=== PATIENT | male | born 1965 ===

== ENCOUNTER → 2021-05-29 | Outpatient (CLI) | payer OTHER ==
--- NOTE | 2021-05-29 14:53 | MR ---
EXAMINATION TYPE: MR cervical spine wo con DATE OF EXAM: 05/29/2021 COMPARISON: None HISTORY: 55-year-old male M54.81, Bilateral Occipital Neuralgia, KIM x 8 months TECHNIQUE: Multiplanar, multisequence images of the cervical spine were acquired without contrast. FINDINGS: No craniocervical junction abnormality, predental space widening, or prevertebral soft tissue swellin g. Mild multilevel degenerative disc disease with desiccated and bulging discs. More moderate at C5-C6 w ith mild disc space narrowing and fatty Modic type II endplate change. Mild ligamentum flavum thickening mid to lower cervical spine. Scattered facet and uncovertebral joint arthropathy is present. At C2-C3, no canal or foraminal stenosis. At C3-C4, mild facet and uncovertebral joint arthropathy on the right with mild right neuroforaminal stenosis. No spinal canal stenosis. At C4-C5, facet and uncovertebral joint arthropathy, right greater the left with mild right neurofora shlomo stenosis. Minimal posterior disc bulge abutting the ventral cord but no significant spinal jose carlos l stenosis. At C5-C6, broad-based disc osteophyte complex with contiguous uncovertebral joint and facet arthropat hy, left greater than right. Changes result in severe left and moderate right neural foraminal stenos is. Along with ligamentum flavum thickening, there is moderate spinal canal stenosis with abutment of both the dorsal and ventral cord and right ventral cord flattening. No myelopathic cord signal soares e. At C6-C7, broad-based posterior disc ossific complex with uncovertebral joint and facet arthropathy. Changes result in moderate bilateral neural foraminal stenosis. Ligamentum flavum thickening, there i s overall moderate spinal canal stenosis with abutment and flattening of the ventral cord. No ari m yelopathic cord signal change. At C7-T1, mild posterior disc bulge. Hypertrophic facet arthropathy. Mild left neuroforaminal stenosi s. No significant spinal canal stenosis. IMPRESSION: 1. Mild multilevel degenerative disc disease, more moderate at C5-C6. Ligamentum flavum thickening mi d to lower cervical spine and multilevel facet and uncovertebral joint arthropathy. 2. Overall moderate spinal canal narrowing at C5-C6 and C6-C7. There is abutment and slight flattenin g of the ventral cord at both of these levels. No myelopathic cord signal change or ari cord compre ssion. 3. Variable neural foraminal stenoses as outlined above, severe on the left and moderate on the right at C5-C6. Moderate on both sides at C6-C7.
== END | disposition home or self-care (01) ==
LOC: RADMRIMAIN 10:37
PROVIDERS: ATTEND Psychiatry & Neurology Neurology
DX: M48.02 Spinal stenosis, cervical region (principal); M50.322 Other cervical disc degeneration at C5-C6 level
CPT/HCPCS: 72141

== ENCOUNTER → 2021-07-11 | Outpatient (CLI) | payer OTHER ==
[2021-07-11 08:15] VITALS: BP 145/91; PULSE 70; RESP 18; TEMP 97.9
--- NOTE | 2021-07-11 08:17 | P.PAINCN ---
History of Present Illness - Reason for Consult Consult date: 07/11/21 - History of Present Illness This is 55 years old male, chronic history of severe headache started in August 2020, he denies any initiating event and he reported that the headache intensity increased over time, it starts from the base of the skull and radiated to the top, intensity of the headache fluctuated during the daytime, he denies any aura before the headache, he tried multiple medication with only minimal benefit from it, denies any motor or sensory deficit he denies any fever or night sweats, intensity of the headache interfere with the quality of life, he is currently on Motrin 800 mg Foristell and Flexeril, he tried chiropractics with only minimal benefit and he is currently on physical therapy ,and he tryied to home exercise Past Medical History Past Medical History: Atrial Fibrillation, Asthma, Myocardial Infarction (CT) Additional Past Medical History / Comment(s): headaches Last Myocardial Infarction Date:: 2013 History of Any Multi-Drug Resistant Organisms: None Reported Past Surgical History: Orthopedic Surgery Additional Past Surgical History / Comment(s): 05/09 tendon,ligament,muscle reattachment lt elbow. cyst removed rt foot, cyst back of head removed Past Anesthesia/Blood Transfusion Reactions: No Reported Reaction Past Psychological History: No Psychological Hx Reported Smoking Status: Former smoker Past Alcohol Use History: None Reported Additional Past Alcohol Use History / Comment(s): quit smoking 2014 Past Drug Use History: None Reported Medications and Allergies Home Medications Medication Instructions Recorded Confirmed Type ALPRAZolam [Xanax] 0.5 mg PO DAILY PRN 07/10/21 07/10/21 History Albuterol Sulfate [Proair Hfa] 2 puff INHALATION Q6HR PRN 07/10/21 07/10/21 History Cyclobenzaprine [Flexeril] 1 - 2 mg PO HS 07/10/21 07/10/21 History Fluticasone/Salmeterol [Advair 1 inhalation PO BID 07/10/21 07/10/21 History 500-50 Diskus] HYDROcodone/APAP 5-325MG [Foristell 2 tab PO Q8HR PRN 07/10/21 07/10/21 History 5-325] Ibuprofen 800 mg PO DAILY PRN 07/10/21 07/10/21 History Loratadine 10 mg PO DAILY 07/10/21 07/10/21 History Metoprolol Tartrate [Lopressor] 25 mg PO BID 07/10/21 07/10/21 History Allergies Allergy/AdvReac Type Severity Reaction Status Date / Time Iodinated Contrast Media Allergy Nausea & Verified 07/10/21 10:32 Vomiting Iodine and Iodide Containing Allergy Nausea & Verified 07/10/21 10:32 Produc Vomiting Physical Exam Physical Examinations : -Constitutiona : Cooperative , not in acute distress . -HEENT : nech : supple , no Lymphadenopathy , normal thyroid size . : eyes : no ptosis , no icterus, no photophobia . - neurologic : Cranial nerve II to XII intact , no focal neurological deffecit . -psychatric : alert , oriented X 3 , appropriate affect , intact judgment and insight . -Lymphatic : no Lymphadenopathy . - musculoskeltal : Cervical Spine motor stregnth in the deltoid and biceps, normal right side , normal Left side motor stregnth biceps and the wrist extensors normal right side ,normal left side . motor stregnth in the triceps muscle . normal Right side , normal Left side deep tendon reflexes normal at the biceps , normal at Brachioradialis , normal at triceps. cervical facet loading test: Positive Bilaterally Tenderness over the occipital nerves bilaterally Lumber spine moter stegnth lower extremities ,thigh and legs 5/5 Right side , 5/5 Left side Results Comments: MRI of the cervical spine =multilevel cervical facet arthropathy multilevel cervical degenerative disc disease, and multilevel cervical stenosis Assessment and Plan Plan: Assessment and plan=1-occipital neuralgia bilaterally. 2-cervicogenic headache. 3-cervical spondylosis with cervical facet arthropathy. he is good candidate to have bilateral occipital nerve block. In the future if patient continues to have headache he can consider doing diagnostic medial branch block cervical area Time with Patient: Greater than 30 PQRS Measure Charge Sheet Measure #130: Documentation of Current Meds in Medical Chart: Patient's medications documented in chart Measure #226: Tobacco Use: Screen & Cessation Intervention: Pt not a tobacco user Measure #111: Pneumonia Vaccination: Pneumococcal vaccine NOT administered or previously given Measure #47: Advance Care Plan: Advance care planning discussed & documented, pt chose/unable to give Measure #412: Opioid Treatment Agreement: No documentation of signed opioid treatment agreement Measure #408: Opioid Therapy Follow-up Evaluation: Patient had NO f/u eval minimum every 3 months during opioid therapy Measure #317: Preventitive Care & Scrn High Bld Press & F/U: Pre-hypertensive or hypertensive BP documented, pt will f/u with PCP Measure #128: Body Mass Index (BMI) Screening & Follow-up: BMI documented within normal parameters Measure #131: Pain Assessment & Follow-up: Pain positive & plan documented, Follow-up scheduled Measure #431: Unhealthy Alcohol Use Preventative Care & Scrn: Patient not identified as an unhealthy alcohol user PQRS Narrative: Pain Intensity [Head] 7 Scale Used Numeric (1 - 10) Hx Alcohol Use (MH) No Home Medications: Ambulatory Orders ALPRAZolam [Xanax] 0.5 mg PO DAILY PRN 07/10/21 Albuterol Sulfate [Proair Hfa] 2 puff INHALATION Q6HR PRN 07/10/21 Cyclobenzaprine [Flexeril] 1 - 2 mg PO HS 07/10/21 Fluticasone/Salmeterol [Advair 500-50 Diskus] 1 inhalation PO BID 07/10/21 HYDROcodone/APAP 5-325MG [Foristell 5-325] 2 tab PO Q8HR PRN 07/10/21 Ibuprofen 800 mg PO DAILY PRN 07/10/21 Loratadine 10 mg PO DAILY 07/10/21 Metoprolol Tartrate [Lopressor] 25 mg PO BID 07/10/21
== END ==
LOC: PNWHC3 07:38
PROVIDERS: ATTEND Specialist
DX: M54.81 Occipital neuralgia (principal); M47.812 Spondylosis without myelopathy or radiculopathy, cervical region; I48.91 Unspecified atrial fibrillation; J45.909 Unspecified asthma, uncomplicated; I25.2 Old myocardial infarction; Z87.891 Personal history of nicotine dependence; Z91.041 Radiographic dye allergy status; Z79.51 Long term (current) use of inhaled steroids
CPT/HCPCS: 99211

== ENCOUNTER 2021-08-08 08:16 | Day surgery (SDC) | payer OTHER ==
[2021-08-01 16:26] VITALS: BMI 25.4
[~2021-08-08 08:16] MED LIST: LACTATED RINGERS 1,000 ML IV SCH
[2021-08-08 08:57] VITALS: TEMP 96.9
[2021-08-08] MEDS ORDERED: methylPREDNISolone ACETATE 40 MG/ML 1 ML VIAL ONE (09:15)
[2021-08-08] MEDS ORDERED: ROPIVACAINE 5MG/ML 20ML VIAL ONE (09:15)
--- NOTE | 2021-08-08 09:29 | P.PCN ---
Date of Procedure: 08/08/21 Procedure(s) Performed: Preoperative diagnoses= 1- Greater occipital neuralgia. 2-cervicogenic headache. 3-cervical spondylosis with cervical facet arthropathy Postoperative diagnoses= same as preoperative diagnosis. Procedure= Bilateral Greater occipital nerve block Anesthesia= none Estimated blood loss=minimal. Procedure indication= the patient had a history of severe chronic neck pain ,and headache, diagnosed with occipital neuralgia exam was positive for severe tenderness over the occipital nerve bilaterally, she will be a good candidate occipital nerve block, patient failed conservative management Procedure description= the patient was seen and identified in the preoperative holding area, risks and benefits and alternative of the procedure and possible complications discussed with the patient, and he agreed with the preceding, patient signed the consent, an IV was started, and vital signs were monitored and were stable throughout the procedure, patient was placed in the sitting position or table and the neck area was prepped and draped with a sterile fashion, vital signs were closely monitored during the procedure, 25-gauge needle advanced 1 inch lateral to the occipital protuberance on the right side, at the location of the right occipital nerve , then after negative aspiration for heme and CSF and there was no paresthesia during the injection, 6 ml of Robivacaine 0.5% and 20 mg of Depo-Medrol injected after negative aspiration, the needle removed, and the entire same procedure was repeated for the left Greater occipital nerve. Patient tolerated the procedure well without any complication, The patient returned to supine position after the back was cleaned and a Band- Aid applied, the patient transported to recovery room in stable condition and he was monitored for 30 minutes before he was discharged home and then patient was reexamined before going home and patient was discharged in stable condition and patient will follow up with the pain clinic in a few weeks.
[2021-08-08] MEDS ORDERED: IV FLUID CONTINUATION 1,000 ML IV ONE (09:31)
[2021-08-08 09:39] VITALS: RESP 18
[2021-08-08 09:55] VITALS: BP 121/78; PULSE 71
== END 2021-08-08 10:02 | disposition home or self-care (01) ==
LOC: ORPAIN 08:16
PROVIDERS: ATTEND Specialist
DX: M47.812 Spondylosis without myelopathy or radiculopathy, cervical region (principal); M54.81 Occipital neuralgia; G44.86 Cervicogenic headache
CPT/HCPCS: 64405; J1030; J2795

== ENCOUNTER 2021-09-12 08:18 | Day surgery (SDC) | payer OTHER ==
[2021-09-11 10:27] VITALS: BMI 25.7
[~2021-09-12 08:18] MED LIST changes: +LIDOCAINE 1% (10MG/ML) FOR IV START INTRADERMA PRN
[2021-09-12 08:42] VITALS: RESP 16; TEMP 98.2
[2021-09-12] MEDS ORDERED: methylPREDNISolone ACETATE 40 MG/ML 1 ML VIAL ONE (09:22)
[2021-09-12] MEDS ORDERED: ROPIVACAINE 5MG/ML 20ML VIAL ONE (09:22)
--- NOTE | 2021-09-12 09:34 | P.PCN ---
Date of Procedure: 09/12/21 Procedure(s) Performed: Procedure(s) Performed: Preoperative diagnoses= 1- Greater occipital neuralgia. 2-cervicogenic headache. 3-cervical spondylosis with cervical facet arthropathy Postoperative diagnoses= same as preoperative diagnosis. Procedure= Bilateral Greater occipital nerve block Anesthesia= none Estimated blood loss=minimal. Procedure indication= the patient had a history of severe chronic neck pain ,and headache, diagnosed with occipital neuralgia exam was positive for severe tenderness over the occipital nerve bilaterally, she will be a good candidate occipital nerve block, patient failed conservative management Procedure description= the patient was seen and identified in the preoperative holding area, risks and benefits and alternative of the procedure and possible complications discussed with the patient, and he agreed with the preceding, patient signed the consent, an IV was started, and vital signs were monitored and were stable throughout the procedure, patient was placed in the sitting position or table and the neck area was prepped and draped with a sterile fashion, vital signs were closely monitored during the procedure, 25-gauge needle advanced 1 inch lateral to the occipital protuberance on the right side, at the location of the right occipital nerve , then after negative aspiration for heme and CSF and there was no paresthesia during the injection, 6 ml of Robivacaine 0.5% and 20 mg of Depo-Medrol injected after negative aspiration, the needle removed, and the entire same procedure was repeated for the left Greater occipital nerve. Patient tolerated the procedure well without any complication, The patient returned to supine position after the back was cleaned and a Band- Aid applied, the patient transported to recovery room in stable condition and he was monitored for 30 minutes before he was discharged home and then patient was reexamined before going home and patient was discharged in stable condition and patient will follow up with the pain clinic in a few weeks. If he continues to have pain then we will consider doing medial branch block/and third occipital nerve, and possible RF
[2021-09-12 09:42] VITALS: BP 125/76; PULSE 63
== END 2021-09-12 09:58 | disposition home or self-care (01) ==
LOC: ORPAIN 08:18
PROVIDERS: ATTEND Specialist
DX: M54.81 Occipital neuralgia (principal); G44.86 Cervicogenic headache; M47.812 Spondylosis without myelopathy or radiculopathy, cervical region
CPT/HCPCS: 64405; J1030; J2795

== ENCOUNTER → 2021-10-16 | Outpatient (CLI) | payer OTHER ==
[2021-10-16 09:32] VITALS: BP 130/75; PULSE 65; RESP 18; TEMP 97.6
--- NOTE | 2021-10-16 09:49 | P.PN ---
Subjective Progress Note Date: 10/16/21 Principal diagnosis: A 56 yr old male with a history of severe and chronic neck pain secondary to cervical degenerative disc diseases and spondylosis with facet arthropathy presents today for evaluation s/p G.O.N. injection. Patient states he expressively 80% pain relief status post procedure. Pain level is 3 out of 10 in intensity, dull, achy in the base of the head with occasional shooting pain of the scalp bilaterally. Pain was provoked by bright lights but patient is not experiencing intense migraines anymore since the procedure. Pain is alleviated with medications, injections, ice, heat, physical therapy but she is currently an, home exercise regimen, repositioning and rest. Interventional pain procedures completed include BL G.O.N. Patient is currently on Corn and Motrin from his PCP Patient denies any side effects of the medication(s), denies excessive dr owsiness or sleepiness, denies suicidal ideation and reports that the current pain medication is helping to control the pain and improve activities of daily living. Patient denies any motor or sensory deficits. Patient denies any fever or night sweats, denies any change in the bowel movements or urination. Physical Examination: -Constitutional: Cooperative. Not in acute distress . -HEENT: Neck is supple. No lymphadenopathy. No thyromegaly. Normal thyroid size. Eyes: No ptosis , no icterus, no photophobia. ENT: No auditory deficits. Normal oropharynx. No Thrush. - Respiratory: Chest clear to auscultations bilaterally. No wheezing. No rhonchi. - Cardiovascular: Regular rate and rhythm. S1 / S2 , no S3 , no S4. - Gastrointestinal: Abdomen soft no tenderness. Bowel sounds positive in all four quadrants. No organomegaly. - Genitourinary: Deferred. - Neurologic: Cranial nerve II to XII intact. No focal neurological deficits. - Psychatric: Alert & oriented x 3. Matching mood & appropriate affect. Judgment and insight intact. - Lymphatic: No Lymphadenopathy. - Musculoskeletal: Cervical spine: Muscle bulk/ tone/ strength in the bilateral upper extremities normal. Facet loading test cervical area positive. Lumbar spine: Motor bulk/ tone/ strength lower extremities , thigh and legs : 5/5 Deep tendon reflexes : Normal Knee Jerk. Normal Ankle Jerk . Vertebral body tenderness to palpation over Lumbar Facet Loading Test positive Straight Leg Raise: positive at 30 degrees right side/ left side Gaenslen's Test positive Sacral spine : Severe tenderness over the Sacroiliac joint: right side / left side Range of motion: Flexion of the lumbar spine <60 degrees Range of motion: Extension of the lumbar spine <20 degrees Gaenslen's Test positive Rashaun test: positive right side / left side Assessment and plan: Chronic neck pain secondary to cervical degenerative disc disease , spondylosis with facet arthropathy without myelopathy Patient obtained sufficient and satisfactory pain relief status post procedure. He may return to our office in the near future on an as-needed basis. All patient questions answered MAPS reviewed and it was appropriate. I have spent 31 minutes on patient care today. Dr Mancera was available by phone for the evaluation of this patient. The time was used to review the medical records including relevant urine studies and Prescription history (MAPs), review of the available imaging, evaluation and examination of the patient, coordination of care with the medical staff and if applicable referring physicians, as well as creation of the medical record Objective - Vital Signs Vital signs: Vital Signs Temp 97.6 F 10/16/21 09:26 Pulse 65 10/16/21 09:26 Resp 18 10/16/21 09:26 BP 130/75 10/16/21 09:26 Pulse Ox 95 10/16/21 09:26 PQRS Measure Charge Sheet Mode of Arrival: Ambulatory - Pain Location Head Non-Pharmacological Interventions: Heat, Home Exercise, Ice, Physical Therapy, Position/Reposition, Relaxation Technique, Stretching Pharmacological Interventions: Block, PRN Medication PQRS Narrative: Blood Pressure 130/75 Pain Intensity [Head] 3 Scale Used Numeric (1 - 10) Hx Alcohol Use (MH) No Home Medications: Ambulatory Orders ALPRAZolam [Xanax] 0.5 mg PO DAILY PRN 07/10/21 Albuterol Sulfate [Proair Hfa] 2 puff INHALATION Q6HR PRN 07/10/21 Cyclobenzaprine [Flexeril] 5 mg PO DAILY PRN 07/10/21 Fluticasone/Salmeterol [Advair 500-50 Diskus] 1 inhalation PO BID 07/10/21 HYDROcodone/APAP 5-325MG [Corn 5-325] 2 tab PO Q8HR PRN 07/10/21 Loratadine 10 mg PO DAILY 07/10/21 Metoprolol Tartrate [Lopressor] 25 mg PO BID 07/10/21 Ibuprofen 800 mg PO Q8H PRN 09/11/21
== END ==
LOC: PNWHC3 08:48
PROVIDERS: ATTEND Specialist
DX: M50.30 Other cervical disc degeneration, unspecified cervical region (principal); M47.812 Spondylosis without myelopathy or radiculopathy, cervical region; G89.29 Other chronic pain; Z91.041 Radiographic dye allergy status
CPT/HCPCS: 99211